=== PATIENT | male | born 1995 | race Hispanic/Latino ===

== ENCOUNTER 2018-09-17 21:24 | Emergency (ER) | payer OTHER ==
[2018-09-17] MEDS ORDERED: ACETAMINOPHEN EXTRA STRENGTH 500 MG TABLET ONE (21:48)
[2018-09-17] MEDS ORDERED: OSELTAMIVIR PHOSPHATE 75 MG CAP ONE (23:14)
== END 2018-09-17 23:22 | disposition home or self-care (01) ==
LOC: EDH 21:24
DX: J10.1 Influenza due to other identified influenza virus with other respiratory manifestations (principal)
CPT/HCPCS: 87804